=== PATIENT | female | born 1970 | race Caucasian/White ===

== ENCOUNTER 2022-04-04 08:47 | Outpatient (CLI) | payer OTHER | END 2022-04-04 08:48 | disposition home or self-care (01) | LOC: BICULT 08:47 | PROVIDERS: ATTEND Internal Medicine | DX: R74.8 Abnormal levels of other serum enzymes (principal); N28.1 Cyst of kidney, acquired; Z90.49 Acquired absence of other specified parts of digestive tract | CPT/HCPCS: 76705 ==